=== PATIENT | male | born 1935 | race Caucasian/White ===

== ENCOUNTER 2019-04-14 09:50 | Inpatient (IN) | payer MEDICARE ==
[2019-04-14] MEDS ORDERED: NACL 0.9% 500 ML 500 ML IV ONE (10:24)
--- NOTE | 2019-04-14 10:32 | Emergency Department Report ---
HPI - General Chief Complaint: Dizziness Time Seen by Provider: 04/14/19 10:07 - HPI HPI: 84-year-old -Cub[place] male presents to the emergency department, with his daughter at bedside, from his adult daycare with a complaint of some drowsiness and a fall. The patient's daughter says that she believes that it is because he got his dementia medication too late last night and this medication often makes him drowsy. The patient wandered off on Sunday evening and he found him outside early Sunday morning. He otherwise has a history of hypertension. His primary care physician is Dr. Mason. The daughter woke him up this morning and got him ready for adult daycare but then he laid down and was sleeping again before they left so she noticed his tiredness or drowsiness. She says that this happened in the past due to this medication, which she cannot remember the name of. The adult daycare called her and told her that he appears drowsy and had a fall. Currently the patient is arousable and has no complaints but does appear confused secondary to his dementia. The patient's daughter says that he is at his baseline mental status. ED Past Medical Hx - Past Medical History Previous Medical History?: Yes Hx Hypertension: Yes Hx Renal Disease: Yes Hx Dementia: Yes - Social History Smoking Status: Never Smoker Substance Use Type: None - Medications Home Medications: Home Medications Medication Instructions Recorded Confirmed Last Taken Type AtorvaSTATin 40 mg PO HS 09/14/18 09/14/18 Unknown History Donepezil [Aricept] 10 mg PO DAILY 09/14/18 09/14/18 Unknown History Flomax 0.4 mg PO DAILY 09/14/18 09/14/18 Unknown History Lisinopril [Zestril TAB] 40 mg PO DAILY 09/14/18 09/14/18 Unknown History Memantine HCl [Namenda] 10 mg PO BID 09/14/18 09/14/18 Unknown History Seroquel 50 mg PO HS 09/14/18 09/14/18 Unknown History Tylenol 1,000 mg PO Q8HR PRN 09/14/18 09/14/18 Unknown History Verapamil HCl 240 mg PO DAILY 09/14/18 09/14/18 Unknown History ED Review of Systems ROS: Stated complaint: SICK/NAUSEA Other details as noted in HPI Comment: Unobtainable due to pts medical conditions Physical Exam - Physical Exam Vital Signs: Vital Signs 04/14/19 10:01 Temperature 97.4 F L Pulse Rate 47 L Respiratory 16 Rate Blood Pressure 97/46 O2 Sat by Pulse 99 Oximetry Physical Exam: GENERAL: The patient is well-developed well-nourished. HENT: Normocephalic. Atraumatic. Patient has moist mucous membranes. EYES: Extraocular motions are intact. Pupils equal reactive to light bilaterally. NECK: Supple. Trachea is midline. CHEST/LUNGS: Clear to auscultation. There is no respiratory distress noted. HEART/CARDIOVASCULAR: Regular. There is mild bradycardia. There is no murmur. ABDOMEN: Abdomen is soft, nontender. Patient has normal bowel sounds. There is no abdominal distention. SKIN: Skin is warm and dry. NEURO: The patient is awake and cooperative. AAO x [address] but not time. The patient has normal speech. Cranial nerves II through XII grossly intact. No pronator drift. No dysmetria. MUSCULOSKELETAL: There is no tenderness or deformity. There is no limitation range of motion. There is no evidence of acute injury. ED Course Vital Signs 04/14/19 10:01 Temperature 97.4 F L Pulse Rate 47 L Respiratory 16 Rate Blood Pressure 97/46 O2 Sat by Pulse 99 Oximetry - Consultations Consultation #1: 04/14/19 11:41 I spoke with the patient's primary care physician, Dr. Mason, was able to tell me that his last kidney function was a creatinine of 1.6 in late January. When I told him the current kidney function, he recommended admission to the hospitalist. - EJ/Peripheral Line Arm R Time Out Performed: Yes Indications: nurses unable to establis Skin Cleansed in Sterile Fashion: Yes Size: 22 Dressing Placed: Tegaderm, tape Patient Tolerated Procedure: well Additional Comments: Ultrasound guided ED Medical Decision Making - Lab Data Result diagrams: 04/14/19 10:32 04/14/19 10:32 - EKG Data -: EKG Interpreted by Me EKG shows normal: sinus rhythm, axis, intervals (prolonged QT), QRS complexes (RBBB), ST-T waves Rate: bradycardia (45 bpm) - EKG Data When compared to previous EKG there are: no significant change (Except for rate, current EKG shows bradycardia) Interpretation: unchanged when compared t (4/4/18) - Radiology Data Radiology results: report reviewed CT HEAD WITHOUT CONTRAST: HISTORY: Drowsy, fall. TECHNIQUE: Sequential CT images without contrast. FINDINGS: Images obtained show bilateral prominence of the sulci and ventricles. There are no abnormal intra- or extra-axial blood or fluid collections. There are no focal masses or evidence of mass effect. The reyes white matter differentiation appears within normal limits. Regions of periventricular decreased attenuation are consistent with microangiopathic ischemic disease. The posterior fossa structures including the fourth ventricle, cerebellum, and brainstem appear normal. IMPRESSION: Evidence of atrophy and microangiopathic ischemic disease. No acute intracranial process noted. CT SCAN OF THE CERVICAL SPINE: HISTORY: Fall. TECHNIQUE: Contiguous 1.25 mm axial images of the cervical spine were obtained. Sagittal and coronal reformatted images. FINDINGS: Severe degenerative disc disease and mild facet arthropathy or identified at all levels. No evidence for displaced fracture, subluxation or bone lesion. Paravertebral soft tissues are unremarkable. IMPRESSION: Advanced cervical spondylosis. No acute process is noted. Transcribed By: TTR Dictated By: MANUEL LENTZ JR, MD Electronically Authenticated By: MANUEL LENTZ JR, MD Signed Date/Time: 04/14/19 1115 - Medical Decision Making Patient was originally brought in by his daughter from adult daycare secondary to some drowsiness and a fall. The daughter thinks the drowsiness secondary to his dementia medication. CT of the head and cervical spine did not show any bleed, shift, mass, ischemia, fracture, subluxation, or any other acute process. Patient's labs are mostly unremarkable except for acute renal failure. I had spoken to the patient's primary care physician and his last blood work from January showed a GFR of about 45 but is now down to about 20. Patient will be admitted to the hospital for further evaluation and treatment was accepted for admission by the hospitalist, Dr. Lake. - Differential Diagnosis dementia, dysrhythmia, malignancy Critical Care Time: No Critical care attestation.: If time is entered above; I have spent that time in minutes in the direct care of this critically ill patient, excluding procedure time. ED Disposition Clinical Impression: Frequent falls, Bradycardia Dementia Qualifiers: Dementia type: unspecified type Dementia behavioral disturbance: without behavioral disturbance Qualified Code(s): F03.90 - Unspecified dementia without behavioral disturbance ARF (acute renal failure) Qualifiers: Acute renal failure type: unspecified Qualified Code(s): N17.9 - Acute kidney failure, unspecified Disposition: DC-09 OP ADMIT IP TO THIS HOSP Is pt being admited?: Yes Condition: Fair Time of Disposition: 13:00
[2019-04-14 10:52] LABS: Basophils % (Auto) 0.5 % (0.0-1.8); Eosinophils % (Auto) 0.9 % (0.0-4.3); Hematocrit 30.3 % (35.5-45.6); Hemoglobin 9.6 gm/dl (11.8-15.2); Lymphocytes % (Auto) 18.1 % (13.4-35.0); Mean Corpuscular HGB Conc 32 % (32-34); Mean Corpuscular Volume 89 fl (84-94); Monocytes # (Auto) 0.4 K/mm3 (0.0-0.8); Monocytes % (Auto) 7.1 % (0.0-7.3); Platelet Count 211 K/mm3 (140-440); Red Cell Distribution Width 17.3 % (13.2-15.2)
[2019-04-14 11:11] LABS: Alanine Aminotransferase 8 units/L (7-56); Albumin 3.4 g/dL (3.9-5); BUN/Creatinine Ratio 9; Blood Urea Nitrogen 24 mg/dL (9-20); Calcium 8.6 mg/dL (8.4-10.2); Hemolysis Index 6
--- NOTE | 2019-04-14 11:20 | Cat Scan Report ---
CT SCAN OF THE CERVICAL SPINE: HISTORY: Fall. TECHNIQUE: Contiguous 1.25 mm axial images of the cervical spine were obtained. Sagittal and coronal reformatted images. FINDINGS: Severe degenerative disc disease and mild facet arthropathy or identified at all levels. No evidence for displaced fracture, subluxation or bone lesion. Paravertebral soft tissues are unremarkable. IMPRESSION: Advanced cervical spondylosis. No acute process is noted.
--- NOTE | 2019-04-14 11:20 | Cat Scan Report ---
CT HEAD WITHOUT CONTRAST: HISTORY: Drowsy, fall. TECHNIQUE: Sequential CT images without contrast. FINDINGS: Images obtained show bilateral prominence of the sulci and ventricles. There are no abnormal intra- or extra-axial blood or fluid collections. There are no focal masses or evidence of mass effect. The reyes white matter differentiation appears within normal limits. Regions of periventricular decreased attenuation are consistent with microangiopathic ischemic disease. The posterior fossa structures including the fourth ventricle, cerebellum, and brainstem appear normal. IMPRESSION: Evidence of atrophy and microangiopathic ischemic disease. No acute intracranial process noted.
[2019-04-14 11:50] LABS: Bacteria,Urine 1+ /HPF (Negative); Bilirubin,Urine NEG (Negative); Blood,Urine NEG (Negative); Color,Urine Yellow (Yellow); Mucus,Urine 1+ /HPF; Protein,Urine <15 mg/dL mg/dL (Negative)
--- NOTE | 2019-04-14 11:59 | History and Physical Report ---
History of Present Illness Chief complaint: Confusion History of present illness: 84 YO Male with Dementia, HTN, Debility presents to ED for evaluation. Pt is confused and unable to provide detailed history, but history is provided by daughters who are at bedside during exam and interview. Pt daughters report that patient has experienced increasing confusion, weakness, and decreased interaction with family over the past 1 month. The patient was in his Adult Day Habilitation program today when he experienced confusion, and lethargy. Pt family was notified, and the patient was transported to [facility] via private vehicle. Pt seen and evaluated in ED and found to have ARF, Encephalopathy, as well as hypotension with systolic BP in the 90's. PT admitted to [facility] unit. Nephrology consulted in ED. No further history obtainable. No reports of fever, chills, CP, Palpitations, NVD, Trauma, BRBPR, Unintentional weight loss, night sweats, recent ill contacts, or productive cough. Prior admission on 02/13/18 reviewed. All listed medication reconciled at time of admission. Past History Past Medical History: hypertension, other (Dementia, Debility) Past Surgical History: No surgical history, Other (reviewed) Social history: single. denies: smoking, alcohol abuse, prescription drug abuse Family history: hypertension Medications and Allergies Allergies Allergy/AdvReac Type Severity Reaction Status Date / Time No Known Allergies Allergy Verified 04/14/19 10:01 Home Medications Medication Instructions Recorded Confirmed Last Taken Type AtorvaSTATin 40 mg PO HS 09/14/18 09/14/18 Unknown History Donepezil [Aricept] 10 mg PO DAILY 09/14/18 09/14/18 Unknown History Flomax 0.4 mg PO DAILY 09/14/18 09/14/18 Unknown History Lisinopril [Zestril TAB] 40 mg PO DAILY 09/14/18 09/14/18 Unknown History Memantine HCl [Namenda] 10 mg PO BID 09/14/18 09/14/18 Unknown History Seroquel 50 mg PO HS 09/14/18 09/14/18 Unknown History Tylenol 1,000 mg PO Q8HR PRN 09/14/18 09/14/18 Unknown History Verapamil HCl 240 mg PO DAILY 09/14/18 09/14/18 Unknown History Review of Systems ROS unobtainable: due to mental status Exam - Constitutional Vitals: Temp Pulse Resp BP Pulse Ox 97.4 F L 54 L 16 119/54 98 04/14/19 10:01 04/14/19 11:37 04/14/19 11:37 04/14/19 11:37 04/14/19 11:37 General appearance: Present: mild distress - EENT Eyes: Present: PERRL ENT: hearing intact, clear oral mucosa - Neck Neck: Present: supple, normal ROM - Respiratory Respiratory effort: normal Respiratory: bilateral: CTA - Cardiovascular Heart Sounds: Present: S1 & S2. Absent: rub, click - Extremities Extremities: pulses symmetrical, No edema Peripheral Pulses: within normal limits - Abdominal General gastrointestinal: Present: soft, non-tender, non-distended, normal bowel sounds Male genitourinary: Present: normal - Integumentary Integumentary: Present: clear, dry, clammy, decreased turgor - Musculoskeletal Musculoskeletal: generalized weakness - Psychiatric Psychiatric: no appropriate mood/affect, no intact judgment & insight, no memory intact - Neurologic Neurologic: CNII-XII intact, no focal deficits, moves all extremities, no gait normal Results - Labs CBC & Chem 7: 04/14/19 10:32 04/14/19 10:32 Labs: Abnormal lab results 04/14/19 04/14/19 04/14/19 Range/Units 10:03 10:32 10:32 RBC 3.40 L (3.65-5.03) M/mm3 Hgb 9.6 L (11.8-15.2) gm/dl Hct 30.3 L (35.5-45.6) % RDW 17.3 H (13.2-15.2) % Lymph # 1.0 L (1.2-5.4) K/mm3 Seg Neutrophils % 73.4 H (40.0-70.0) % Carbon Dioxide 20 L (22-30) mmol/L BUN 24 H (9-20) mg/dL Creatinine 2.8 H (0.8-1.5) mg/dL Glucose 109 H (75-100) mg/dL POC Glucose 143 H (70-105) Albumin 3.4 L (3.9-5) g/dL Assessment and Plan - Patient Problems (1) ARF (acute renal failure) Current Visit: No Status: Acute Qualifiers: Acute renal failure type: with acute tubular necrosis Qualified Code(s): N17.0 - Acute kidney failure with tubular necrosis Plan to address problem: IVF resuscitation therapy, UOP q shift, avoid nephrotoxic agents, urine electrolytes, nephrology consulted in ED. (2) Debility Current Visit: No Status: Acute Plan to address problem: PT consulted, Fall precautions, (3) Encephalopathy acute Current Visit: No Status: Acute Plan to address problem: CT head, neuro checks, seizure precautions, fall precautions, IVF resuscitation. (4) DVT prophylaxis Current Visit: No Status: Acute Plan to address problem: SCD to BLE while in bed, prophylactic heparin
[2019-04-14 12:04] LABS: Amphetamine Screen,Urine PRESUMPTIVE NEGATIVE; Benzodiazepines Screen,Urine PRESUMPTIVE NEGATIVE; Cannabinoid Screen,Urine PRESUMPTIVE NEGATIVE; Cocaine Screen,Urine PRESUMPTIVE NEGATIVE; Methadone Screen,Urine PRESUMPTIVE NEGATIVE; Opiate Screen,Urine PRESUMPTIVE NEGATIVE
[2019-04-14] MEDS ORDERED: PROVENTIL IH PRN (12:07)
[2019-04-14] MEDS ORDERED: TYLENOL PO PRN (12:07)
[2019-04-14] MEDS ORDERED: ZOFRAN IV PRN (12:07)
[2019-04-14] MEDS ORDERED: SODIUM CHLORIDE FLUSH SYRINGE 10 ML IV PRN (12:07)
[2019-04-14] MEDS ORDERED: TYLENOL 1000 MG PO PRN (12:12)
[2019-04-14] MEDS ORDERED: ATIVAN IV PRN (14:30)
[2019-04-14 15:23] LABS: Free T4 (Free Thyroxine) 0.94 ng/dL (0.76-1.46)
--- NOTE | 2019-04-14 17:03 | Consultation ---
History of Present Illness - Reason for Consult Consult date: 04/14/19 acute renal failure, chronic renal failure - History of Present Illness The patient is an 84 YO Male with history significant for HTN, HLD, Dementia, CKD stage 3 and ?BPH who presented to [facility] ED for evaluation of AMS. Pt was confused to provide any history and there was no family members at bedside. Pt has been more confused, weak and decreased interaction with family over the past month. The patient was seen and evaluated in ED and found to have hypotension, JOAO and Encephalopathy. His initial BP was 97/46. Pt was admitted to [facility] unit. Creatinine was 2.8 on admission. Nephrology was consulted for further nicolle luation. Past History Past Medical History: hypertension, hyperlipidemia, renal failure, other (Dementia) Past Surgical History: No surgical history, Other (reviewed) Social history: single. denies: smoking, alcohol abuse, prescription drug abuse Family history: hypertension Medications and Allergies Allergies Allergy/AdvReac Type Severity Reaction Status Date / Time No Known Allergies Allergy Verified 04/14/19 10:01 Home Medications Medication Instructions Recorded Confirmed Last Taken Type AtorvaSTATin 40 mg PO HS 09/14/18 09/14/18 Unknown History Donepezil [Aricept] 10 mg PO DAILY 09/14/18 09/14/18 Unknown History Flomax 0.4 mg PO DAILY 09/14/18 09/14/18 Unknown History Lisinopril [Zestril TAB] 40 mg PO DAILY 09/14/18 09/14/18 Unknown History Memantine HCl [Namenda] 10 mg PO BID 09/14/18 09/14/18 Unknown History Seroquel 50 mg PO HS 09/14/18 09/14/18 Unknown History Tylenol 1,000 mg PO Q8HR PRN 09/14/18 09/14/18 Unknown History Verapamil HCl 240 mg PO DAILY 09/14/18 09/14/18 Unknown History Active Meds: Active Medications Acetaminophen (Tylenol) 650 mg PO Q4H PRN PRN Reason: Pain MILD(1-3)/Fever >100.5/SANTILLAN Albuterol (Proventil) 2.5 mg IH Q4HRT PRN PRN Reason: Shortness Of Breath Atorvastatin Calcium (Lipitor) 40 mg PO QHS ALANA Donepezil HCl (Aricept) 10 mg PO DAILY ALANA Heparin Sodium (Porcine) (Heparin) 5,000 unit SUB-Q Q12HR [facility] Lisinopril (Zestril) 40 mg PO DAILY ALANA Lorazepam (Ativan) 1 mg IV Q8H PRN PRN Reason: Agitation Memantine (Namenda) 10 mg PO BID ALANA Ondansetron HCl (Zofran) 4 mg IV Q8H PRN PRN Reason: Nausea And Vomiting Quetiapine Fumarate (Seroquel) 50 mg PO HS ALANA Sodium Chloride (Sodium Chloride Flush Syringe 10 Ml) 10 ml IV BID ALANA Sodium Chloride (Sodium Chloride Flush Syringe 10 Ml) 10 ml IV PRN PRN PRN Reason: LINE FLUSH Tamsulosin HCl (Flomax) 0.4 mg PO QDAY ALANA Verapamil HCl (Calan Sr) 240 mg PO QDAY ALANA Review of Systems ROS unobtainable: due to mental status Exam - Vital Signs Vital signs: Vital Signs Temp Pulse Resp BP Pulse Ox 97.4 F L 47 L 16 97/46 99 04/14/19 10:01 04/14/19 10:01 04/14/19 10:01 04/14/19 10:01 04/14/19 10:01 - General Appearance General appearance: well-developed, well-nourished, appears stated age, other (on restrains, not in distress) EENT: ATNC, PERRL, hearing intact Neck: Present: neck supple, trachea midline Respiratory: Clear to Ascultation Heart: regular, S1S2, no murmurs Gastrointestinal: Present: normoactive bowel sounds. Absent: tenderness, distended Integumentary: chronic venous stasis (LE) Neurologic: other (exam is limited, follows some command, alert) Musculoskeletal: Present: other (no edema) Results - Lab Results 04/14/19 10:32 04/14/19 10:32 Most recent lab results Calcium 8.6 mg/dL (8.4-10.2) 04/14/19 10:32 - Image Kidney/bladder ultrasound: pending Assessment and Plan 1. Acute kidney injury: Vasomotor JOAO superimposed on CKD stage 3 in the setting of volume depletion / hypotension. UA is bland. Urine studies and Renal US ordered. Start on IV fluids. Monitor renal function. Avoid nephrotoxic agents. Meds dosage based on GFR. 2. FEN: Volume depletion, start on IV fluids. Monitor lytes. 3. Hypotension: BP is better. Monitor. 4. Encephalopathy. H/o Dementia. 5. Anemia: POA.
[2019-04-14] MEDS ORDERED: NON-FORMULARY (Atorvastatin 40 MG) PO SCH (22:00)
[2019-04-14] MEDS ORDERED: NON-FORMULARY (Seroquel 50 MG) PO SCH (22:00)
[2019-04-14] MEDS: NACL 0.45% 1000 ML 1,000 ML IV SCH (23:28)
[2019-04-14] MEDS: SODIUM CHLORIDE FLUSH SYRINGE 10 ML IV SCH (23:28)
[2019-04-14] MEDS: HEPARIN SUB-Q SCH (23:29)
[2019-04-14] MEDS: NAMENDA PO SCH (23:47)
[2019-04-15 05:26] LABS: Creatinine,Urine 213.5 mg/dL (0.1-20.0)
[2019-04-15 08:13] LABS: Calcium 8.4 mg/dL (8.4-10.2)
[2019-04-15 08:33] LABS: Basophils % (Auto) 0.6 % (0.0-1.8); Eosinophils # (Auto) 0.2 K/mm3 (0.0-0.4); Hematocrit 28.1 % (35.5-45.6); Lymphocytes # (Auto) 2.1 K/mm3 (1.2-5.4); Mean Corpuscular HGB Conc 32 % (32-34); Mean Corpuscular Volume 86 fl (84-94); Monocytes # (Auto) 0.4 K/mm3 (0.0-0.8); Monocytes % (Auto) 8.9 % (0.0-7.3); Platelet Count 201 K/mm3 (140-440); Red Blood Count 3.27 M/mm3 (3.65-5.03); Red Cell Distribution Width 16.7 % (13.2-15.2)
--- NOTE | 2019-04-15 09:12 | Progress Note ---
Assessment and Plan 1. Acute kidney injury: Vasomotor JOAO superimposed on CKD stage 3 in the setting of volume depletion / hypotension. UA is bland. Renal US was negative for hydro. Continue IV fluids. Renal function is improving. Monitor renal function. Avoid nephrotoxic agents. Meds dosage based on GFR. 2. FEN: Volume depletion, continue IV fluids. Monitor lytes. 3. Hypotension: BP is better. Monitor. 4. Encephalopathy. H/o Dementia. 5. Anemia: POA. Subjective Date of service: 04/15/19 Interval history: Patient was seen and examined at the bedside. Objective - Vital Signs Vital signs: Vital Signs - 12hr 04/14/19 04/15/19 04/15/19 22:00 01:51 07:26 Temperature 97.3 F L 98.0 F Pulse Rate 55 L 51 L Respiratory 16 20 Rate Blood Pressure 125/60 124/61 O2 Sat by Pulse 97 97 100 Oximetry 04/15/19 08:17 Temperature Pulse Rate Respiratory Rate Blood Pressure O2 Sat by Pulse 100 Oximetry - General Appearance General appearance: well-developed, well-nourished, appears stated age, other (n ot in distress, on restrains) EENT: ATNC, PERRL, mucous membranes moist, hearing intact, vision intact Neck: supple Respiratory: Present: Clear to Ascultation Cardiology: regular, S1S2, no murmurs Gastrointestinal: normoactive bowel sounds, no tenderness, no distended Integumentary: no rash, warm and dry Neurologic: no focal deficit, no asterixis, confused, disoriented Musculoskeletal: other (no edema) - Lab 04/15/19 07:05 04/16/19 05:26 Most recent lab results Calcium 8.4 mg/dL (8.4-10.2) 04/15/19 07:05 Phosphorus 3.10 mg/dL (2.5-4.5) 04/15/19 07:05 Magnesium 1.90 mg/dL (1.7-2.3) 04/15/19 07:05 213.5 mg/dL (0.1-20.0) H 04/15/19 05:00 106 mmol/L 04/15/19 05:00 Medications & Allergies - Medications Allergies/Adverse Reactions: Allergies No Known Allergies Allergy (Verified 04/14/19 10:01) Home Medications: Home Medications Medication Instructions Recorded Confirmed Last Taken Type AtorvaSTATin 40 mg PO HS 09/14/18 09/14/18 Unknown History Donepezil [Aricept] 10 mg PO DAILY 09/14/18 09/14/18 Unknown History Flomax 0.4 mg PO DAILY 09/14/18 09/14/18 Unknown History Lisinopril [Zestril TAB] 40 mg PO DAILY 09/14/18 09/14/18 Unknown History Memantine HCl [Namenda] 10 mg PO BID 09/14/18 09/14/18 Unknown History Seroquel 50 mg PO HS 09/14/18 09/14/18 Unknown History Tylenol 1,000 mg PO Q8HR PRN 09/14/18 09/14/18 Unknown History Verapamil HCl 240 mg PO DAILY 09/14/18 09/14/18 Unknown History Active Medications: Generic Name Dose Route Start Last Admin Trade Name Freq PRN Reason Stop Dose Admin Acetaminophen 650 mg 04/14/19 12:07 Tylenol PO Q4H PRN Pain MILD(1-3)/Fever >100.5/SANTILLAN Albuterol 2.5 mg 04/14/19 12:07 Proventil IH Q4HRT PRN Shortness Of Breath Atorvastatin Calcium 40 mg 04/14/19 22:00 04/14/19 23:29 Lipitor PO 40 mg QHS ALANA Administration Donepezil HCl 10 mg 04/15/19 10:00 Aricept PO DAILY ALANA Heparin Sodium (Porcine) 5,000 unit 04/14/19 22:00 04/14/19 23:29 Heparin SUB-Q 5,000 unit Q12HR ALANA Administration Sodium Chloride 1,000 mls @ 75 mls/hr 04/14/19 18:00 04/14/19 23:28 Nacl 0.45% 1000 Ml IV 75 mls/hr DIRECT ALANA Administration Lorazepam 1 mg 04/14/19 14:30 Ativan IV Q8H PRN Agitation Memantine 10 mg 04/14/19 22:00 04/14/19 23:47 Namenda PO 10 mg BID ALANA Administration Ondansetron HCl 4 mg 04/14/19 12:07 Zofran IV Q8H PRN Nausea And Vomiting Quetiapine Fumarate 50 mg 04/14/19 22:00 04/14/19 23:28 Seroquel PO 50 mg HS ALANA Administration Sodium Chloride 10 ml 04/14/19 22:00 04/14/19 23:28 Sodium Chloride Flush Syringe 10 Ml IV 10 ml BID ALANA Administration Sodium Chloride 10 ml 04/14/19 12:07 Sodium Chloride Flush Syringe 10 Ml IV PRN PRN LINE FLUSH Tamsulosin HCl 0.4 mg 04/15/19 10:00 Flomax PO QDAY ALANA Verapamil HCl 240 mg 04/15/19 10:00 Calan Sr PO QDAY ALANA
--- NOTE | 2019-04-15 09:19 | Progress Note ---
Assessment and Plan Assessment and plan: --Metabolic encephalopathy/altered level of consciousness Present on admission, multifactorial Supportive care --Possible urinary tract infection; empiric antibiotics Follow cultures, supportive care --Acute kidney injury; secondary to tubular necrosis Mild improvement, but renal function improving Creatinine trending down, avoid nephrotoxins Nephrology following --Hypertension; moderate control Continue current antihypertensives and when necessary medications --Dementia continue Aricept and Namenda[2 medications] Supportive care --Dyslipidemia; and statin --History of BPH; and Flomax --[id number] malnutrition/hypoalbuminemia Nutrition supplements and supportive care --Full CODE STATUS Monitor closely and adjust the management as needed History Interval history: Patient seen and examined medical records reviewed No new events reported by nursing staff Admitted with altered level of consciousness Patient is more alert still confused at times Vital signs noted Hospitalist Physical - Constitutional Vitals: Temp Pulse Resp BP Pulse Ox 98.0 F 51 L 20 124/61 100 04/15/19 07:26 04/15/19 07:26 04/15/19 07:26 04/15/19 07:26 04/15/19 08:17 General appearance: Present: no acute distress, well-nourished, other (confused at times) - EENT Eyes: Present: PERRL, EOM intact - Neck Neck: Present: supple, normal ROM - Respiratory Respiratory effort: normal Respiratory: bilateral: diminished, negative: rales, rhonchi, wheezing - Cardiovascular Rhythm: regular Heart Sounds: Present: S1 & S2 - Extremities Extremities: no ischemia, No edema - Abdominal General gastrointestinal: soft, non-tender, non-distended, normal bowel sounds - Integumentary Integumentary: Present: clear, warm - Psychiatric Psychiatric: appropriate mood/affect, cooperative - Neurologic Neurologic: CNII-XII intact, moves all extremities Results - Labs CBC & Chem 7: 04/15/19 07:05 04/15/19 07:05 Labs: Laboratory Last Values WBC 4.6 K/mm3 (4.5-11.0) 04/15/19 07:05 RBC 3.27 M/mm3 (3.65-5.03) L 04/15/19 07:05 Hgb 9.0 gm/dl (11.8-15.2) L 04/15/19 07:05 Hct 28.1 % (35.5-45.6) L 04/15/19 07:05 MCV 86 fl (84-94) 04/15/19 07:05 MCH 28 pg (28-32) 04/15/19 07:05 MCHC 32 % (32-34) 04/15/19 07:05 RDW 16.7 % (13.2-15.2) H 04/15/19 07:05 Plt Count 201 K/mm3 (140-440) 04/15/19 07:05 Lymph % (Auto) 45.0 % (13.4-35.0) H 04/15/19 07:05 [place] % (Auto) 8.9 % (0.0-7.3) H 04/15/19 07:05 Eos % (Auto) 4.0 % (0.0-4.3) 04/15/19 07:05 Baso % (Auto) 0.6 % (0.0-1.8) 04/15/19 07:05 Lymph # 2.1 K/mm3 (1.2-5.4) 04/15/19 07:05 [place] # 0.4 K/mm3 (0.0-0.8) 04/15/19 07:05 Eos # 0.2 K/mm3 (0.0-0.4) 04/15/19 07:05 Baso # 0.0 K/mm3 (0.0-0.1) 04/15/19 07:05 Seg Neutrophils % 41.5 % (40.0-70.0) 04/15/19 07:05 Seg Neutrophils # 1.9 K/mm3 (1.8-7.7) 04/15/19 07:05 Sodium 142 mmol/L (137-145) 04/15/19 07:05 Potassium 3.6 mmol/L (3.6-5.0) 04/15/19 07:05 Chloride 109.3 mmol/L (98-107) H 04/15/19 07:05 Carbon Dioxide 22 mmol/L (22-30) 04/15/19 07:05 14 mmol/L 04/15/19 07:05 BUN 22 mg/dL (9-20) H 04/15/19 07:05 1.9 mg/dL (0.8-1.5) H 04/15/19 07:05 Estimated GFR 34 ml/min 04/15/19 07:05 12 % 04/15/19 07:05 Glucose 83 mg/dL (75-100) 04/15/19 07:05 POC Glucose 143 (70-105) H 04/14/19 10:03 Calcium 8.4 mg/dL (8.4-10.2) 04/15/19 07:05 Phosphorus 3.10 mg/dL (2.5-4.5) 04/15/19 07:05 Magnesium 1.90 mg/dL (1.7-2.3) 04/15/19 07:05 0.50 mg/dL (0.1-1.2) 04/14/19 10:32 AST 16 units/L (5-40) 04/14/19 10:32 ALT 8 units/L (7-56) 04/14/19 10:32 93 units/L (35-129) 04/14/19 10:32 < 0.010 ng/mL (0.00-0.029) 04/14/19 10:32 6.3 g/dL (6.3-8.2) 04/14/19 10:32 3.4 g/dL (3.9-5) L 04/14/19 10:32 1.2 % 04/14/19 10:32 TSH 1.750 mlU/mL (0.270-4.200) 04/14/19 11:38 TSH 1.760 mlU/mL (0.270-4.200) 04/14/19 11:38 Free T4 0.94 ng/dL (0.76-1.46) 04/14/19 11:38 Yellow (Yellow) 04/14/19 11:33 Clear (Clear) 04/14/19 11:33 5.0 (5.0-7.0) 04/14/19 11:33 Ur Specific [place] 1.019 (1.003-1.030) 04/14/19 11:33 <15 mg/dl mg/dL (Negative) 04/14/19 11:33 Neg mg/dL (Negative) 04/14/19 11:33 Neg mg/dL (Negative) 04/14/19 11:33 Neg (Negative) 04/14/19 11:33 Neg (Negative) 04/14/19 11:33 Neg (Negative) 04/14/19 11:33 2.0 mg/dL (<2.0) 04/14/19 11:33 Ur Leukocyte Esterase Neg (Negative) 04/14/19 11:33 6.0 /HPF (0.0-6.0) 04/14/19 11:33 2.0 /HPF (0.0-6.0) 04/14/19 11:33 U Epithel Cells (Auto) < 1.0 /HPF (0-13.0) 04/14/19 11:33 1+ /HPF (Negative) 04/14/19 11:33 1+ /HPF 04/14/19 11:33 213.5 mg/dL (0.1-20.0) H 04/15/19 05:00 106 mmol/L 04/15/19 05:00 Presumptive negative 04/14/19 11:33 Presumptive negative 04/14/19 11:33 Ur Barbiturates Screen Presumptive negative 04/14/19 11:33 Ur Phencyclidine Scrn Presumptive negative 04/14/19 11:33 Ur Amphetamines Screen Presumptive negative 04/14/19 11:33 U Benzodiazepines Scrn Presumptive negative 04/14/19 11:33 Presumptive negative 04/14/19 11:33 U Marijuana (THC) Screen Presumptive negative 04/14/19 11:33 Disclamer 04/14/19 11:33 Plasma/Serum Alcohol < 0.01 % (0-0.07) 04/14/19 10:32 Active Medications - Current Medications Current Medications: Generic Name Dose Route Start Last Admin Trade Name Freq PRN Reason Stop Dose Admin Acetaminophen 650 mg 04/14/19 12:07 Tylenol PO Q4H PRN Pain MILD(1-3)/Fever >100.5/SANTILLAN Albuterol 2.5 mg 04/14/19 12:07 Proventil IH Q4HRT PRN Shortness Of Breath Atorvastatin Calcium 40 mg 04/14/19 22:00 04/14/19 23:29 Lipitor PO 40 mg QHS ALANA Administration Donepezil HCl 10 mg 04/15/19 10:00 Aricept PO DAILY ALANA Heparin Sodium (Porcine) 5,000 unit 04/14/19 22:00 04/14/19 23:29 Heparin SUB-Q 5,000 unit Q12HR ALANA Administration Sodium Chloride 1,000 mls @ 75 mls/hr 04/14/19 18:00 04/14/19 23:28 Nacl 0.45% 1000 Ml IV 75 mls/hr DIRECT ALANA Administration Lorazepam 1 mg 04/14/19 14:30 Ativan IV Q8H PRN Agitation Memantine 10 mg 04/14/19 22:00 04/14/19 23:47 Namenda PO 10 mg BID ALANA Administration Ondansetron HCl 4 mg 04/14/19 12:07 Zofran IV Q8H PRN Nausea And Vomiting Quetiapine Fumarate 50 mg 04/14/19 22:00 04/14/19 23:28 Seroquel PO 50 mg HS ALANA Administration Sodium Chloride 10 ml 04/14/19 22:00 04/14/19 23:28 Sodium Chloride Flush Syringe 10 Ml IV 10 ml BID ALANA Administration Sodium Chloride 10 ml 04/14/19 12:07 Sodium Chloride Flush Syringe 10 Ml IV PRN PRN LINE FLUSH Tamsulosin HCl 0.4 mg 04/15/19 10:00 Flomax PO QDAY ALANA Verapamil HCl 240 mg 04/15/19 10:00 Calan Sr PO QDAY ALANA
[2019-04-15] MEDS ORDERED: NON-FORMULARY (Flomax 0.4 MG) PO SCH (10:00)
[2019-04-15] MEDS ORDERED: ZESTRIL PO SCH (10:00)
[2019-04-15] MEDS ORDERED: VERAPAMIL HCL 240 MG PO SCH (10:00)
--- NOTE | 2019-04-15 10:54 | Ultrasound Report ---
ULTRASOUND RENAL BILATERAL HISTORY: Acute renal failure. TECHNIQUE: transabdominal ultrasound with color Doppler interrogation. COMPARISON: None. FINDINGS: The right kidney measures 9.0 x 4.5 x 4.8cm. Right renal cortex: 1.2cm. The left kidney measures 11.3 x 4.6 x 5.6cm. Left renal cortex: 1.5cm. The kidneys are normal size, contour and position. There is increased renal cortical echotexture bilaterally consistent with nonspecific renal parenchymal disease. Corticomedullary differentiation is preserved. There are 2 cysts in the superior right kidney measuring 1.2 cm and 2.7 cm. There are 2 cysts in the mid and inferior left kidney measuring 2.0 cm and 2.4 cm. No evidence for mass, nephrolithiasis, hydronephrosis or perinephric fluid. The bladder is partially empty but unremarkable. IMPRESSION: Nonspecific renal parenchymal disease. Bilateral renal cysts.
[2019-04-15] MEDS: ROCEPHIN/NS 1 GM/50 ML 1 GM/50 ML BAG IV SCH (13:43)
[2019-04-15] MEDS: NAMENDA PO SCH ×2 (13:44→22:34)
[2019-04-15] MEDS: CALAN SR PO SCH (13:44)
[2019-04-15] MEDS: HEPARIN SUB-Q SCH ×2 (13:44→22:34)
[2019-04-15] MEDS: ARICEPT PO SCH (13:45)
[2019-04-15] MEDS: FLOMAX PO SCH (13:45)
[2019-04-15] MEDS: SODIUM CHLORIDE FLUSH SYRINGE 10 ML IV SCH ×2 (13:45→22:35)
[2019-04-15] MEDS: NACL 0.45% 1000 ML 1,000 ML IV SCH (16:34)
[2019-04-16] MEDS: ROCEPHIN/NS 1 GM/50 ML 1 GM/50 ML BAG IV SCH (05:05)
[2019-04-16 06:32] LABS: Calcium 8.2 mg/dL (8.4-10.2)
[2019-04-16] MEDS: CALAN SR PO SCH (09:06)
[2019-04-16] MEDS: NAMENDA PO SCH ×2 (09:07→22:40)
[2019-04-16] MEDS: ARICEPT PO SCH (09:07)
[2019-04-16] MEDS: FLOMAX PO SCH (09:08)
[2019-04-16] MEDS: SODIUM CHLORIDE FLUSH SYRINGE 10 ML IV SCH ×2 (09:09→22:45)
[2019-04-16] MEDS: HEPARIN SUB-Q SCH ×2 (09:12→22:40)
--- NOTE | 2019-04-16 12:27 | Progress Note ---
Assessment and Plan Assessment and plan: --Metabolic encephalopathy/altered level of consciousness Present on admission, multifactorial. Mild improvement --Possible urinary tract infection; empiric antibiotics Follow cultures, supportive care --Acute kidney injury; secondary to tubular necrosis Creatinine trending down, nephrology following Avoid nephrotoxins, renal ultrasound unremarkable, renal cysts --Hypertension; moderate control Continue current antihypertensives and when necessary medications --Dementia continue Aricept and Namenda[2 medications] Supportive care --Bradycardia; heart rate in 50s and 60s, closely monitor Thyroid tests normal --Dyslipidemia; and statin --History of BPH; and Flomax --Giqk-il-oxlzygde malnutrition/hypoalbuminemia Nutrition supplements and supportive care --Full CODE STATUS Monitor closely and adjust the management as needed History Interval history: Patient seen and examined medical records reviewed Patient feels slightly better, Still confused at times Not in acute distress Vital signs noted Hospitalist Physical - Constitutional Vitals: Temp Pulse Resp BP Pulse Ox 97.6 F 50 L 18 134/75 100 04/16/19 07:25 04/16/19 10:00 04/16/19 10:00 04/16/19 09:06 04/16/19 10:00 General appearance: Present: no acute distress, well-nourished, other (confused at times) - EENT Eyes: Present: PERRL, EOM intact - Neck Neck: Present: supple, normal ROM - Respiratory Respiratory effort: normal Respiratory: bilateral: diminished, negative: rales, rhonchi, wheezing - Cardiovascular Rhythm: regular Heart Sounds: Present: S1 & S2 - Extremities Extremities: no ischemia, No edema - Abdominal General gastrointestinal: soft, non-tender, non-distended, normal bowel sounds - Integumentary Integumentary: Present: clear, warm - Psychiatric Psychiatric: appropriate mood/affect, cooperative, other (confused at times) - Neurologic Neurologic: moves all extremities Results - Labs CBC & Chem 7: 04/15/19 07:05 04/16/19 05:26 Labs: Laboratory Last Values WBC 4.6 K/mm3 (4.5-11.0) 04/15/19 07:05 RBC 3.27 M/mm3 (3.65-5.03) L 04/15/19 07:05 Hgb 9.0 gm/dl (11.8-15.2) L 04/15/19 07:05 Hct 28.1 % (35.5-45.6) L 04/15/19 07:05 MCV 86 fl (84-94) 04/15/19 07:05 MCH 28 pg (28-32) 04/15/19 07:05 MCHC 32 % (32-34) 04/15/19 07:05 RDW 16.7 % (13.2-15.2) H 04/15/19 07:05 Plt Count 201 K/mm3 (140-440) 04/15/19 07:05 Lymph % (Auto) 45.0 % (13.4-35.0) H 04/15/19 07:05 [place] % (Auto) 8.9 % (0.0-7.3) H 04/15/19 07:05 Eos % (Auto) 4.0 % (0.0-4.3) 04/15/19 07:05 Baso % (Auto) 0.6 % (0.0-1.8) 04/15/19 07:05 Lymph # 2.1 K/mm3 (1.2-5.4) 04/15/19 07:05 [place] # 0.4 K/mm3 (0.0-0.8) 04/15/19 07:05 Eos # 0.2 K/mm3 (0.0-0.4) 04/15/19 07:05 Baso # 0.0 K/mm3 (0.0-0.1) 04/15/19 07:05 Seg Neutrophils % 41.5 % (40.0-70.0) 04/15/19 07:05 Seg Neutrophils # 1.9 K/mm3 (1.8-7.7) 04/15/19 07:05 Sodium 140 mmol/L (137-145) 04/16/19 05:26 Potassium 3.8 mmol/L (3.6-5.0) 04/16/19 05:26 Chloride 108.0 mmol/L (98-107) H 04/16/19 05:26 Carbon Dioxide 21 mmol/L (22-30) L 04/16/19 05:26 15 mmol/L 04/16/19 05:26 BUN 19 mg/dL (9-20) 04/16/19 05:26 1.6 mg/dL (0.8-1.5) H 04/16/19 05:26 Estimated GFR 41 ml/min 04/16/19 05:26 12 % 04/16/19 05:26 Glucose 87 mg/dL (75-100) 04/16/19 05:26 POC Glucose 143 (70-105) H 04/14/19 10:03 Calcium 8.2 mg/dL (8.4-10.2) L 04/16/19 05:26 Phosphorus 3.10 mg/dL (2.5-4.5) 04/15/19 07:05 Magnesium 1.90 mg/dL (1.7-2.3) 04/16/19 05:26 0.50 mg/dL (0.1-1.2) 04/14/19 10:32 AST 16 units/L (5-40) 04/14/19 10:32 ALT 8 units/L (7-56) 04/14/19 10:32 93 units/L (35-129) 04/14/19 10:32 < 0.010 ng/mL (0.00-0.029) 04/14/19 10:32 6.3 g/dL (6.3-8.2) 04/14/19 10:32 3.4 g/dL (3.9-5) L 04/14/19 10:32 1.2 % 04/14/19 10:32 TSH 1.750 mlU/mL (0.270-4.200) 04/14/19 11:38 TSH 1.760 mlU/mL (0.270-4.200) 04/14/19 11:38 Free T4 0.94 ng/dL (0.76-1.46) 04/14/19 11:38 Yellow (Yellow) 04/14/19 11:33 Clear (Clear) 04/14/19 11:33 5.0 (5.0-7.0) 04/14/19 11:33 Ur Specific [place] 1.019 (1.003-1.030) 04/14/19 11:33 <15 mg/dl mg/dL (Negative) 04/14/19 11:33 Neg mg/dL (Negative) 04/14/19 11:33 Neg mg/dL (Negative) 04/14/19 11:33 Neg (Negative) 04/14/19 11:33 Neg (Negative) 04/14/19 11:33 Neg (Negative) 04/14/19 11:33 2.0 mg/dL (<2.0) 04/14/19 11:33 Ur Leukocyte Esterase Neg (Negative) 04/14/19 11:33 6.0 /HPF (0.0-6.0) 04/14/19 11:33 2.0 /HPF (0.0-6.0) 04/14/19 11:33 U Epithel Cells (Auto) < 1.0 /HPF (0-13.0) 04/14/19 11:33 1+ /HPF (Negative) 04/14/19 11:33 1+ /HPF 04/14/19 11:33 213.5 mg/dL (0.1-20.0) H 04/15/19 05:00 106 mmol/L 04/15/19 05:00 Presumptive negative 04/14/19 11:33 Presumptive negative 04/14/19 11:33 Ur Barbiturates Screen Presumptive negative 04/14/19 11:33 Ur Phencyclidine Scrn Presumptive negative 04/14/19 11:33 Ur Amphetamines Screen Presumptive negative 04/14/19 11:33 U Benzodiazepines Scrn Presumptive negative 04/14/19 11:33 Presumptive negative 04/14/19 11:33 U Marijuana (THC) Screen Presumptive negative 04/14/19 11:33 Disclamer 04/14/19 11:33 Plasma/Serum Alcohol < 0.01 % (0-0.07) 04/14/19 10:32 Active Medications - Current Medications Current Medications: Generic Name Dose Route Start Last Admin Trade Name Freq PRN Reason Stop Dose Admin Acetaminophen 650 mg 04/14/19 12:07 Tylenol PO Q4H PRN Pain MILD(1-3)/Fever >100.5/SANTILLAN Albuterol 2.5 mg 04/14/19 12:07 Proventil IH Q4HRT PRN Shortness Of Breath Atorvastatin Calcium 40 mg 04/14/19 22:00 04/15/19 22:34 Lipitor PO 40 mg QHS ALANA Administration Donepezil HCl 10 mg 04/15/19 10:00 04/16/19 09:07 Aricept PO 10 mg DAILY ALANA Administration Heparin Sodium (Porcine) 5,000 unit 04/14/19 22:00 04/16/19 09:12 Heparin SUB-Q 5,000 unit Q12HR ALANA Administration Sodium Chloride 1,000 mls @ 75 mls/hr 04/14/19 18:00 04/15/19 16:34 Nacl 0.45% 1000 Ml IV 75 mls/hr DIRECT ALANA Administration Ceftriaxone Sodium 1 gm in 50 mls @ 100 mls/hr 04/15/19 10:00 04/16/19 05:05 Rocephin/Ns 1 Gm/50 Ml IV 100 mls/hr Q24HR ALANA Administration Protocol Lorazepam 1 mg 04/14/19 14:30 Ativan IV Q8H PRN Agitation Memantine 10 mg 04/14/19 22:00 04/16/19 09:07 Namenda PO 10 mg BID ALANA Administration Ondansetron HCl 4 mg 04/14/19 12:07 Zofran IV Q8H PRN Nausea And Vomiting Quetiapine Fumarate 50 mg 04/14/19 22:00 04/15/19 22:34 Seroquel PO 50 mg HS ALANA Administration Sodium Chloride 10 ml 04/14/19 22:00 04/16/19 09:09 Sodium Chloride Flush Syringe 10 Ml IV 10 ml BID ALANA Administration Sodium Chloride 10 ml 04/14/19 12:07 Sodium Chloride Flush Syringe 10 Ml IV PRN PRN LINE FLUSH Tamsulosin HCl 0.4 mg 04/15/19 10:00 04/16/19 09:08 Flomax PO 0.4 mg QDAY ALANA Administration Verapamil HCl 240 mg 04/15/19 10:00 04/16/19 09:06 Calan Sr PO 240 mg QDAY ALANA Administration Nutrition/Malnutrition Assess - Dietary Evaluation Nutrition/Malnutrition Findings: Nutrition Notes Start: 04/15/19 16:47 Freq: Status: Active Protocol: Document 04/15/19 16:47 RM (Rec: 04/15/19 16:48 RM [id number]) Nutrition Notes 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 Nutrition Intervention Revisit per MD consult or patient Sign Off request:
[2019-04-16] MEDS: NACL 0.45% 1000 ML 1,000 ML IV SCH (14:53)
--- NOTE | 2019-04-16 22:30 | Progress Note ---
Assessment and Plan 1. Acute kidney injury: Vasomotor JOAO superimposed on CKD stage 3 in the setting of volume depletion / hypotension. UA is bland. Renal US was negative for hydro. Continue IV fluids. Renal function is improving. Monitor renal function. Avoid nephrotoxic agents. Meds dosage based on GFR. 2. FEN: Volume depletion, continue IV fluids. Monitor lytes. 3. Hypotension: BP is better. Monitor. 4. Encephalopathy. H/o Dementia. 5. Anemia: POA. Subjective Date of service: 04/16/19 Interval history: Patient was seen and examined at the bedside. Objective - Vital Signs Vital signs: Vital Signs - 12hr 04/16/19 04/16/19 04/16/19 13:00 13:28 21:00 Temperature 98.2 F 98.8 F Pulse Rate 60 72 Respiratory 20 16 Rate Respiratory 18 Rate [denies pain] Blood Pressure 154/65 Blood Pressure 135/68 [Left] O2 Sat by Pulse 100 92 Oximetry - General Appearance General appearance: well-developed, well-nourished, appears stated age, other (no distress) EENT: ATNC, PERRL, mucous membranes moist, hearing intact, vision intact Neck: supple Respiratory: Present: Clear to Ascultation Cardiology: regular, S1S2, no murmurs Gastrointestinal: normoactive bowel sounds, no tenderness, no distended Integumentary: no rash, warm and dry Neurologic: no focal deficit, no asterixis, confused, disoriented Musculoskeletal: other (no edema) - Lab 04/15/19 07:05 04/16/19 05:26 Most recent lab results Calcium 8.2 mg/dL (8.4-10.2) L 04/16/19 05:26 Phosphorus 3.10 mg/dL (2.5-4.5) 04/15/19 07:05 Magnesium 1.90 mg/dL (1.7-2.3) 04/16/19 05:26 213.5 mg/dL (0.1-20.0) H 04/15/19 05:00 106 mmol/L 04/15/19 05:00 Medications & Allergies - Medications Allergies/Adverse Reactions: Allergies No Known Allergies Allergy (Verified 04/14/19 10:01) Home Medications: Home Medications Medication Instructions Recorded Confirmed Last Taken Type AtorvaSTATin 40 mg PO HS 09/14/18 09/14/18 Unknown History Donepezil [Aricept] 10 mg PO DAILY 09/14/18 09/14/18 Unknown History Flomax 0.4 mg PO DAILY 09/14/18 09/14/18 Unknown History Lisinopril [Zestril TAB] 40 mg PO DAILY 09/14/18 09/14/18 Unknown History Memantine HCl [Namenda] 10 mg PO BID 09/14/18 09/14/18 Unknown History Seroquel 50 mg PO HS 09/14/18 09/14/18 Unknown History Tylenol 1,000 mg PO Q8HR PRN 09/14/18 09/14/18 Unknown History Verapamil HCl 240 mg PO DAILY 09/14/18 09/14/18 Unknown History Active Medications: Generic Name Dose Route Start Last Admin Trade Name Freq PRN Reason Stop Dose Admin Acetaminophen 650 mg 04/14/19 12:07 Tylenol PO Q4H PRN Pain MILD(1-3)/Fever >100.5/SANTILLAN Albuterol 2.5 mg 04/14/19 12:07 Proventil IH Q4HRT PRN Shortness Of Breath Atorvastatin Calcium 40 mg 04/14/19 22:00 04/15/19 22:34 Lipitor PO 40 mg QHS ALANA Administration Donepezil HCl 10 mg 04/15/19 10:00 04/16/19 09:07 Aricept PO 10 mg DAILY ALANA Administration Heparin Sodium (Porcine) 5,000 unit 04/14/19 22:00 04/16/19 09:12 Heparin SUB-Q 5,000 unit Q12HR ALANA Administration Sodium Chloride 1,000 mls @ 75 mls/hr 04/14/19 18:00 04/16/19 14:53 Nacl 0.45% 1000 Ml IV 75 mls/hr DIRECT ALANA Administration Ceftriaxone Sodium 1 gm in 50 mls @ 100 mls/hr 04/15/19 10:00 04/16/19 05:05 Rocephin/Ns 1 Gm/50 Ml IV 100 mls/hr Q24HR ALANA Administration Protocol Lorazepam 1 mg 04/14/19 14:30 Ativan IV Q8H PRN Agitation Memantine 10 mg 04/14/19 22:00 04/16/19 09:07 Namenda PO 10 mg BID ALANA Administration Ondansetron HCl 4 mg 04/14/19 12:07 Zofran IV Q8H PRN Nausea And Vomiting Quetiapine Fumarate 50 mg 04/14/19 22:00 04/15/19 22:34 Seroquel PO 50 mg HS ALANA Administration Sodium Chloride 10 ml 04/14/19 22:00 04/16/19 09:09 Sodium Chloride Flush Syringe 10 Ml IV 10 ml BID ALANA Administration Sodium Chloride 10 ml 04/14/19 12:07 Sodium Chloride Flush Syringe 10 Ml IV PRN PRN LINE FLUSH Tamsulosin HCl 0.4 mg 04/15/19 10:00 04/16/19 09:08 Flomax PO 0.4 mg QDAY ALANA Administration Verapamil HCl 240 mg 04/15/19 10:00 04/16/19 09:06 Calan Sr PO 240 mg QDAY ALANA Administration
[2019-04-17 06:44] LABS: Calcium 8.9 mg/dL (8.4-10.2)
[2019-04-17] MEDS: ARICEPT PO SCH (09:06)
[2019-04-17] MEDS: FLOMAX PO SCH (09:06)
[2019-04-17] MEDS: CALAN SR PO SCH (09:09)
[2019-04-17] MEDS: HEPARIN SUB-Q SCH (09:10)
[2019-04-17] MEDS: ROCEPHIN/NS 1 GM/50 ML 1 GM/50 ML BAG IV SCH (09:10)
[2019-04-17] MEDS: SODIUM CHLORIDE FLUSH SYRINGE 10 ML IV SCH (09:11)
--- NOTE | 2019-04-17 09:27 | Progress Note ---
Assessment and Plan Assessment and plan: --Metabolic encephalopathy/altered level of consciousness Present on admission, multifactorial. Mild improvement --Possible urinary tract infection; empiric antibiotics Follow cultures, supportive care --Acute kidney injury; secondary to tubular necrosis Creatinine trending down, nephrology following Avoid nephrotoxins, renal ultrasound unremarkable, renal cysts --Hypertension; moderate control Continue current antihypertensives and when necessary medications --Dementia continue Aricept and Namenda[2 medications] Supportive care --Bradycardia; heart rate in 50s and 60s, closely monitor Thyroid tests normal --Dyslipidemia; and statin --History of BPH; and Flomax --Oxwv-bi-nvuoyacs malnutrition/hypoalbuminemia Nutrition supplements and supportive care --Full CODE STATUS Monitor closely and adjust the management as needed History Interval history: Patient seen and examined medical records reviewed Patient feels better confused at times Not in acute distress Vital signs noted Hospitalist Physical - Constitutional Vitals: Temp Pulse Resp BP Pulse Ox 97.9 F 56 L 18 124/55 93 04/17/19 08:07 04/17/19 09:09 04/17/19 08:07 04/17/19 09:09 04/17/19 08:07 General appearance: Present: no acute distress, well-nourished, other (confused at times) - EENT Eyes: Present: PERRL, EOM intact - Neck Neck: Present: supple, normal ROM - Respiratory Respiratory effort: normal Respiratory: bilateral: diminished, negative: rales, rhonchi, wheezing - Cardiovascular Rhythm: regular Heart Sounds: Present: S1 & S2 - Extremities Extremities: no ischemia, No edema - Abdominal General gastrointestinal: soft, non-tender, non-distended, normal bowel sounds - Integumentary Integumentary: Present: clear, warm - Psychiatric Psychiatric: appropriate mood/affect, other (confused at times) - Neurologic Neurologic: moves all extremities Results - Labs CBC & Chem 7: 04/15/19 07:05 04/17/19 05:59 Labs: Laboratory Last Values WBC 4.6 K/mm3 (4.5-11.0) 04/15/19 07:05 RBC 3.27 M/mm3 (3.65-5.03) L 04/15/19 07:05 Hgb 9.0 gm/dl (11.8-15.2) L 04/15/19 07:05 Hct 28.1 % (35.5-45.6) L 04/15/19 07:05 MCV 86 fl (84-94) 04/15/19 07:05 MCH 28 pg (28-32) 04/15/19 07:05 MCHC 32 % (32-34) 04/15/19 07:05 RDW 16.7 % (13.2-15.2) H 04/15/19 07:05 Plt Count 201 K/mm3 (140-440) 04/15/19 07:05 Lymph % (Auto) 45.0 % (13.4-35.0) H 04/15/19 07:05 [place] % (Auto) 8.9 % (0.0-7.3) H 04/15/19 07:05 Eos % (Auto) 4.0 % (0.0-4.3) 04/15/19 07:05 Baso % (Auto) 0.6 % (0.0-1.8) 04/15/19 07:05 Lymph # 2.1 K/mm3 (1.2-5.4) 04/15/19 07:05 [place] # 0.4 K/mm3 (0.0-0.8) 04/15/19 07:05 Eos # 0.2 K/mm3 (0.0-0.4) 04/15/19 07:05 Baso # 0.0 K/mm3 (0.0-0.1) 04/15/19 07:05 Seg Neutrophils % 41.5 % (40.0-70.0) 04/15/19 07:05 Seg Neutrophils # 1.9 K/mm3 (1.8-7.7) 04/15/19 07:05 Sodium 141 mmol/L (137-145) 04/17/19 05:59 Potassium 3.7 mmol/L (3.6-5.0) 04/17/19 05:59 Chloride 108.7 mmol/L (98-107) H 04/17/19 05:59 Carbon Dioxide 23 mmol/L (22-30) 04/17/19 05:59 13 mmol/L 04/17/19 05:59 BUN 14 mg/dL (9-20) 04/17/19 05:59 1.6 mg/dL (0.8-1.5) H 04/17/19 05:59 Estimated GFR 41 ml/min 04/17/19 05:59 9 % 04/17/19 05:59 Glucose 97 mg/dL (75-100) 04/17/19 05:59 POC Glucose 143 (70-105) H 04/14/19 10:03 Calcium 8.9 mg/dL (8.4-10.2) 04/17/19 05:59 Phosphorus 3.10 mg/dL (2.5-4.5) 04/15/19 07:05 Magnesium 1.90 mg/dL (1.7-2.3) 04/16/19 05:26 0.50 mg/dL (0.1-1.2) 04/14/19 10:32 AST 16 units/L (5-40) 04/14/19 10:32 ALT 8 units/L (7-56) 04/14/19 10:32 93 units/L (35-129) 04/14/19 10:32 < 0.010 ng/mL (0.00-0.029) 04/14/19 10:32 6.3 g/dL (6.3-8.2) 04/14/19 10:32 3.4 g/dL (3.9-5) L 04/14/19 10:32 1.2 % 04/14/19 10:32 TSH 1.750 mlU/mL (0.270-4.200) 04/14/19 11:38 TSH 1.760 mlU/mL (0.270-4.200) 04/14/19 11:38 Free T4 0.94 ng/dL (0.76-1.46) 04/14/19 11:38 Yellow (Yellow) 04/14/19 11:33 Clear (Clear) 04/14/19 11:33 5.0 (5.0-7.0) 04/14/19 11:33 Ur Specific [place] 1.019 (1.003-1.030) 04/14/19 11:33 <15 mg/dl mg/dL (Negative) 04/14/19 11:33 Neg mg/dL (Negative) 04/14/19 11:33 Neg mg/dL (Negative) 04/14/19 11:33 Neg (Negative) 04/14/19 11:33 Neg (Negative) 04/14/19 11:33 Neg (Negative) 04/14/19 11:33 2.0 mg/dL (<2.0) 04/14/19 11:33 Ur Leukocyte Esterase Neg (Negative) 04/14/19 11:33 6.0 /HPF (0.0-6.0) 04/14/19 11:33 2.0 /HPF (0.0-6.0) 04/14/19 11:33 U Epithel Cells (Auto) < 1.0 /HPF (0-13.0) 04/14/19 11:33 1+ /HPF (Negative) 04/14/19 11:33 1+ /HPF 04/14/19 11:33 213.5 mg/dL (0.1-20.0) H 04/15/19 05:00 106 mmol/L 04/15/19 05:00 Presumptive negative 04/14/19 11:33 Presumptive negative 04/14/19 11:33 Ur Barbiturates Screen Presumptive negative 04/14/19 11:33 Ur Phencyclidine Scrn Presumptive negative 04/14/19 11:33 Ur Amphetamines Screen Presumptive negative 04/14/19 11:33 U Benzodiazepines Scrn Presumptive negative 04/14/19 11:33 Presumptive negative 04/14/19 11:33 U Marijuana (THC) Screen Presumptive negative 04/14/19 11:33 Disclamer 04/14/19 11:33 Plasma/Serum Alcohol < 0.01 % (0-0.07) 04/14/19 10:32 Active Medications - Current Medications Current Medications: Generic Name Dose Route Start Last Admin Trade Name Freq PRN Reason Stop Dose Admin Acetaminophen 650 mg 04/14/19 12:07 Tylenol PO Q4H PRN Pain MILD(1-3)/Fever >100.5/SANTILLAN Albuterol 2.5 mg 04/14/19 12:07 Proventil IH Q4HRT PRN Shortness Of Breath Atorvastatin Calcium 40 mg 04/14/19 22:00 04/16/19 22:39 Lipitor PO 40 mg QHS ALANA Administration Donepezil HCl 10 mg 04/15/19 10:00 04/17/19 09:06 Aricept PO 10 mg DAILY ALANA Administration Heparin Sodium (Porcine) 5,000 unit 04/14/19 22:00 04/17/19 09:10 Heparin SUB-Q 5,000 unit Q12HR ALANA Administration Sodium Chloride 1,000 mls @ 75 mls/hr 04/14/19 18:00 04/16/19 14:53 Nacl 0.45% 1000 Ml IV 75 mls/hr DIRECT ALANA Administration Ceftriaxone Sodium 1 gm in 50 mls @ 100 mls/hr 04/15/19 10:00 04/17/19 09:10 Rocephin/Ns 1 Gm/50 Ml IV 100 mls/hr Q24HR ALANA Administration Protocol Lorazepam 1 mg 04/14/19 14:30 Ativan IV Q8H PRN Agitation Ondansetron HCl 4 mg 04/14/19 12:07 Zofran IV Q8H PRN Nausea And Vomiting Quetiapine Fumarate 50 mg 04/14/19 22:00 04/16/19 22:39 Seroquel PO 50 mg HS ALANA Administration Sodium Chloride 10 ml 04/14/19 22:00 04/17/19 09:11 Sodium Chloride Flush Syringe 10 Ml IV 10 ml BID ALANA Administration Sodium Chloride 10 ml 04/14/19 12:07 Sodium Chloride Flush Syringe 10 Ml IV PRN PRN LINE FLUSH Tamsulosin HCl 0.4 mg 04/15/19 10:00 04/17/19 09:06 Flomax PO 0.4 mg QDAY ALANA Administration Verapamil HCl 240 mg 04/15/19 10:00 04/17/19 09:09 Calan Sr PO Not Given QDAY ALANA Nutrition/Malnutrition Assess - Dietary Evaluation Nutrition/Malnutrition Findings: Nutrition Notes Start: 04/15/19 16:47 Freq: Status: Active Protocol: Document 04/15/19 16:47 RM (Rec: 04/15/19 16:48 RM [id number]) Nutrition Notes 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 Nutrition Intervention Revisit per MD consult or patient Sign Off request:
--- NOTE | 2019-04-17 09:43 | Progress Note ---
Assessment and Plan 1. Acute kidney injury: Vasomotor JOAO superimposed on CKD stage 3 in the setting of volume depletion / hypotension. UA is bland. Renal US was negative for hydro. Renal function is better. Monitor renal function. Avoid nephrotoxic agents. Meds dosage based on GFR. 2. FEN: Volume depletion, improved. Monitor lytes. 3. Hypotension: BP is better. Monitor. 4. Encephalopathy. H/o Dementia. 5. Anemia: POA. Subjective Date of service: 04/17/19 Interval history: Patient was seen and examined at the bedside. Objective - Vital Signs Vital signs: Vital Signs - 12hr 04/17/19 04/17/19 04/17/19 00:24 04:00 08:07 Temperature 97.9 F 98.3 F 97.9 F Pulse Rate 64 49 L Respiratory 18 18 18 Rate Blood Pressure 181/89 Blood Pressure 148/66 135/65 [Left] O2 Sat by Pulse 94 93 Oximetry 04/17/19 09:09 Temperature Pulse Rate 56 L Respiratory Rate Blood Pressure 124/55 Blood Pressure [Left] O2 Sat by Pulse Oximetry - General Appearance General appearance: well-developed, well-nourished, appears stated age, other (no distress) EENT: ATNC, PERRL, hearing intact, vision intact Neck: supple Respiratory: Present: Clear to Ascultation Cardiology: regular, S1S2, no murmurs Gastrointestinal: normoactive bowel sounds, no tenderness, no distended Integumentary: no rash, warm and dry Neurologic: no focal deficit, no asterixis, confused, disoriented Musculoskeletal: other (no edema) - Lab 04/15/19 07:05 04/18/19 05:27 Most recent lab results Calcium 8.9 mg/dL (8.4-10.2) 04/17/19 05:59 Phosphorus 3.10 mg/dL (2.5-4.5) 04/15/19 07:05 Magnesium 1.90 mg/dL (1.7-2.3) 04/16/19 05:26 213.5 mg/dL (0.1-20.0) H 04/15/19 05:00 106 mmol/L 04/15/19 05:00 Medications & Allergies - Medications Allergies/Adverse Reactions: Allergies No Known Allergies Allergy (Verified 04/14/19 10:01) Home Medications: Home Medications Medication Instructions Recorded Confirmed Last Taken Type AtorvaSTATin 20 mg PO HS 09/14/18 04/17/19 Unknown History Donepezil [Aricept] 10 mg PO DAILY 09/14/18 04/17/19 Unknown History Flomax 0.4 mg PO DAILY 09/14/18 04/17/19 Unknown History Seroquel 100 mg PO HS 09/14/18 04/17/19 Unknown History Clobetasol Emollient 0.05% Crm 1 applic TP BID 04/17/19 04/17/19 Unknown History cephALEXin [Keflex] 500 mg PO Q12HR #10 cap 04/18/19 Unknown Rx hydrALAZINE [Apresoline TAB] 25 mg PO BID #60 tablet 04/18/19 Unknown Rx Active Medications: Generic Name Dose Route Start Last Admin Trade Name Freq PRN Reason Stop Dose Admin Acetaminophen 650 mg 04/14/19 12:07 Tylenol PO Q4H PRN Pain MILD(1-3)/Fever >100.5/SANTILLAN Albuterol 2.5 mg 04/14/19 12:07 Proventil IH Q4HRT PRN Shortness Of Breath Atorvastatin Calcium 40 mg 04/14/19 22:00 04/16/19 22:39 Lipitor PO 40 mg QHS ALANA Administration Donepezil HCl 10 mg 04/15/19 10:00 04/17/19 09:06 Aricept PO 10 mg DAILY ALANA Administration Heparin Sodium (Porcine) 5,000 unit 04/14/19 22:00 04/17/19 09:10 Heparin SUB-Q 5,000 unit Q12HR ALANA Administration Sodium Chloride 1,000 mls @ 75 mls/hr 04/14/19 18:00 04/16/19 14:53 Nacl 0.45% 1000 Ml IV 75 mls/hr DIRECT ALANA Administration Ceftriaxone Sodium 1 gm in 50 mls @ 100 mls/hr 04/15/19 10:00 04/17/19 09:10 Rocephin/Ns 1 Gm/50 Ml IV 100 mls/hr Q24HR ALANA Administration Protocol Lorazepam 1 mg 04/14/19 14:30 Ativan IV Q8H PRN Agitation Ondansetron HCl 4 mg 04/14/19 12:07 Zofran IV Q8H PRN Nausea And Vomiting Quetiapine Fumarate 50 mg 04/14/19 22:00 04/16/19 22:39 Seroquel PO 50 mg HS ALANA Administration Sodium Chloride 10 ml 04/14/19 22:00 04/17/19 09:11 Sodium Chloride Flush Syringe 10 Ml IV 10 ml BID ALANA Administration Sodium Chloride 10 ml 04/14/19 12:07 Sodium Chloride Flush Syringe 10 Ml IV PRN PRN LINE FLUSH Tamsulosin HCl 0.4 mg 04/15/19 10:00 04/17/19 09:06 Flomax PO 0.4 mg QDAY ALANA Administration Verapamil HCl 240 mg 04/15/19 10:00 04/17/19 09:09 Calan Sr PO Not Given QDAY ALANA
[2019-04-18] MEDS: HEPARIN SUB-Q SCH ×2 (00:52→09:10)
[2019-04-18 06:05] LABS: Calcium 8.2 mg/dL (8.4-10.2)
[2019-04-18] MEDS: ROCEPHIN/NS 1 GM/50 ML 1 GM/50 ML BAG IV SCH (09:07)
[2019-04-18] MEDS: FLOMAX PO SCH (09:09)
[2019-04-18] MEDS: CALAN SR PO SCH (09:12)
[2019-04-18] MEDS: ARICEPT PO SCH (09:12)
[2019-04-18] MEDS: SODIUM CHLORIDE FLUSH SYRINGE 10 ML IV SCH (09:15)
[2019-04-18 09:17] VITALS: BP 156/77
--- NOTE | 2019-04-18 13:59 | Progress Note ---
Assessment and Plan 1. Acute kidney injury: Vasomotor JOAO superimposed on CKD stage 3 in the setting of volume depletion / hypotension. UA is bland. Renal US was negative for hydro. Renal function is better. Monitor renal function. Avoid nephrotoxic agents. Meds dosage based on GFR. 2. FEN: Volume depletion, improved. Monitor lytes. 3. Hypotension: BP is better. Monitor. 4. Encephalopathy. H/o Dementia. 5. Anemia: POA. Subjective Date of service: 04/18/19 Interval history: Patient was seen and examined at the bedside. Objective - Vital Signs Vital signs: Vital Signs - 12hr 04/18/19 04/18/19 04/18/19 06:20 09:12 10:00 Temperature 98.1 F 98.0 F Pulse Rate 61 59 L Pulse Rate [ 59 L Apical] Respiratory 20 18 Rate Blood Pressure 161/81 156/77 O2 Sat by Pulse 99 100 100 Oximetry - General Appearance General appearance: well-developed, well-nourished, appears stated age, other (no distress) EENT: ATNC, PERRL, mucous membranes moist, hearing intact, vision intact Neck: supple Respiratory: Present: Clear to Ascultation Cardiology: regular, S1S2 Gastrointestinal: normoactive bowel sounds, no tenderness, no distended Integumentary: no rash, warm and dry Neurologic: no focal deficit, no asterixis, confused, disoriented Musculoskeletal: other (no edema) - Lab 04/15/19 07:05 04/18/19 05:27 Most recent lab results Calcium 8.2 mg/dL (8.4-10.2) L 04/18/19 05:27 Phosphorus 3.10 mg/dL (2.5-4.5) 04/15/19 07:05 Magnesium 1.90 mg/dL (1.7-2.3) 04/16/19 05:26 213.5 mg/dL (0.1-20.0) H 04/15/19 05:00 106 mmol/L 04/15/19 05:00 Medications & Allergies - Medications Allergies/Adverse Reactions: Allergies No Known Allergies Allergy (Verified 04/14/19 10:01) Home Medications: Home Medications Medication Instructions Recorded Confirmed Last Taken Type AtorvaSTATin 20 mg PO HS 09/14/18 04/17/19 Unknown History Donepezil [Aricept] 10 mg PO DAILY 09/14/18 04/17/19 Unknown History Flomax 0.4 mg PO DAILY 09/14/18 04/17/19 Unknown History Seroquel 100 mg PO HS 09/14/18 04/17/19 Unknown History Clobetasol Emollient 0.05% Crm 1 applic TP BID 04/17/19 04/17/19 Unknown History cephALEXin [Keflex] 500 mg PO Q12HR #10 cap 04/18/19 Unknown Rx hydrALAZINE [Apresoline TAB] 25 mg PO BID #60 tablet 04/18/19 Unknown Rx Active Medications: Generic Name Dose Route Start Last Admin Trade Name Freq PRN Reason Stop Dose Admin Acetaminophen 650 mg 04/14/19 12:07 Tylenol PO Q4H PRN Pain MILD(1-3)/Fever >100.5/SANTILLAN Albuterol 2.5 mg 04/14/19 12:07 Proventil IH Q4HRT PRN Shortness Of Breath Atorvastatin Calcium 40 mg 04/14/19 22:00 04/18/19 09:15 Lipitor PO Not Given QHS ALANA Donepezil HCl 10 mg 04/15/19 10:00 04/18/19 09:12 Aricept PO 10 mg DAILY ALANA Administration Heparin Sodium (Porcine) 5,000 unit 04/14/19 22:00 04/18/19 09:10 Heparin SUB-Q 5,000 unit Q12HR ALANA Administration Sodium Chloride 1,000 mls @ 75 mls/hr 04/14/19 18:00 04/16/19 14:53 Nacl 0.45% 1000 Ml IV 75 mls/hr DIRECT ALANA Administration Ceftriaxone Sodium 1 gm in 50 mls @ 100 mls/hr 04/15/19 10:00 04/18/19 09:07 Rocephin/Ns 1 Gm/50 Ml IV Not Given Q24HR ALANA Protocol Lorazepam 1 mg 04/14/19 14:30 Ativan IV Q8H PRN Agitation Ondansetron HCl 4 mg 04/14/19 12:07 Zofran IV Q8H PRN Nausea And Vomiting Quetiapine Fumarate 50 mg 04/14/19 22:00 04/17/19 22:15 Seroquel PO 50 mg HS ALANA Administration Sodium Chloride 10 ml 04/14/19 22:00 04/18/19 09:15 Sodium Chloride Flush Syringe 10 Ml IV Not Given BID ALANA Sodium Chloride 10 ml 04/14/19 12:07 Sodium Chloride Flush Syringe 10 Ml IV PRN PRN LINE FLUSH Tamsulosin HCl 0.4 mg 04/15/19 10:00 04/18/19 09:09 Flomax PO 0.4 mg QDAY ALANA Administration Verapamil HCl 240 mg 04/15/19 10:00 04/18/19 09:12 Calan Sr PO Not Given QDAY ALANA
--- NOTE | 2019-04-18 14:19 | Discharge Summary ---
Providers - Providers Date of Admission: 04/14/19 12:07 Date of discharge: 04/18/19 Attending physician: REANNA SALVADOR 04/14/19 12:12 Consult to Physician [CONS] Routine Comment: called answ. serv./ roula Consulting Provider: MAYCOL HINOJOSA Physician Instructions: Reason For Exam: arf 04/14/19 13:03 Physical Therapy Evaluation and Treat [CONS] Routine Comment: Reason For Exam: weakness Primary care physician: [facility], Hospitalization Reason for admission: altered level of consciousness, acute on chronic kidney disease Condition: Fair Pertinent studies: CT cervical spine; advance cervical spondylosis CT head without contrast; atrophy microangiopathic ischemic disease no acute abnormality echocardiogram; left ventricular ejection fraction 50-55% renal ultrasound; nonspecific parenchymal disease and bilateral renal cysts Hospital course: 84-year-old male patient with Dementia, HTN, Debility was admitted through emergency room with confusion , initial evaluation in 80 ED show ARF, Encephalopathy, as well as hypotension with systolic BP in the 90's. PT admitted to [facility] unit. Nephrology evaluated the patient, acute kidney injury secondary to ATN,Symptomatically managed. Function gradually improved. Extensive workup as mentioned above. Patient's symptoms significantly improved. The patient is comfortable in no new complaints vital signs reviewed Clear by nephrology for discharge and follow-up per schedule Case management has evaluated the patient and assisted with discharge planning Patient is stable at discharge Discharge diagnosis: --Metabolic encephalopathy/altered level of consciousness Present on admission, multifactorial. Urinary tract infection, Secondary to dementia , improved back to baseline --Possible urinary tract infection; empiric antibiotics Follow cultures, supportive care --Acute on chronic kidney disease stage III kidney injury; secondary to tubular necrosis, vasomotor nephropathy Creatinine trending down, nephrology following Avoid nephrotoxins, renal ultrasound unremarkable, renal cysts --Hypertension; moderate control Continue current antihypertensives and when necessary medications --Dementia continue Aricept and Namenda[2 medications] Supportive care --Bradycardia; heart rate in 50s and 60s, closely monitor Thyroid tests normal --Dyslipidemia; and statin --History of BPH; and Flomax --[id number] malnutrition/hypoalbuminemia Nutrition supplements and supportive care --Full CODE STATUS Stable at discharge Disposition: - TO HOME OR SELFCARE Time spent for discharge: 32 min Core Measure Documentation - Palliative Care Palliative Care/ Comfort Measures: Not Applicable - Core Measures Any of the following diagnoses?: none Exam - Constitutional Vitals: Temp Pulse Resp BP Pulse Ox 98.0 F 59 L 18 156/77 100 04/18/19 09:12 04/18/19 10:00 04/18/19 09:12 04/18/19 09:12 04/18/19 10:00 General appearance: Present: no acute distress, well-nourished - EENT Eyes: Present: PERRL, EOM intact - Neck Neck: Present: supple, normal ROM - Respiratory Respiratory effort: normal Respiratory: bilateral: diminished, negative: rales, rhonchi, wheezing - Cardiovascular Rhythm: regular Heart Sounds: Present: S1 & S2 - Extremities Extremities: no ischemia, No edema - Abdominal General gastrointestinal: Present: soft, non-tender, non-distended, normal bowel sounds - Integumentary Integumentary: Present: clear, warm - Musculoskeletal Musculoskeletal: generalized weakness - Psychiatric Psychiatric: appropriate mood/affect, other (confused at times) - Neurologic Neurologic: moves all extremities, other (dementia) Plan Activity: advance as tolerated, fall precautions Diet: renal Additional Instructions: Fall precautions. plenty oral fluids Follow up with: SHEYLA MAKI MD [Primary Care Provider] - 3-5 Days MAYCOL HINOJOSA MD [Staff Physician] - 7 Days Prescriptions: hydrALAZINE [Apresoline TAB] 25 mg PO BID #60 tablet cephALEXin [Keflex] 500 mg PO Q12HR #10 cap
== END 2019-04-18 20:00 | disposition home or self-care (01) | DRG 682 ==
LOC: ED 09:50 → 2B-ACE 12:07
PROVIDERS: ADMIT Internal Medicine; ATTEND Internal Medicine
DX: N17.0 Acute kidney failure with tubular necrosis (principal); G93.41 Metabolic encephalopathy; N39.0 Urinary tract infection, site not specified; E44.0 Moderate protein-calorie malnutrition; F03.90 Unspecified dementia, unspecified severity, without behavioral disturbance, psychotic disturbance, mood disturbance, and anxiety; W18.30XA Fall on same level, unspecified, initial encounter; Y93.89 Activity, other specified; Y92.89 Other specified places as the place of occurrence of the external cause; Y99.8 Other external cause status; R00.1 Bradycardia, unspecified; I95.9 Hypotension, unspecified; N18.3 Chronic kidney disease, stage 3 (moderate); I12.9 Hypertensive chronic kidney disease with stage 1 through stage 4 chronic kidney disease, or unspecified chronic kidney disease; E78.5 Hyperlipidemia, unspecified; Z68.24 Body mass index [BMI] 24.0-24.9, adult
CPT/HCPCS: 36415; 70450; 72125; 76770; 80048; 80053; 80307; 80320; 81001; 82570; 82962; 83735; 84100; 84300; 84439; 84443; 84484; 85025; 87086; 93005; 93010; 93306; 94760; 96374; G0378; A9270-GY; G0480; J0696; J1644; J7030; J7040